=== PATIENT | male | born 2000 | race Two or more races ===

== ENCOUNTER 2022-10-28 09:34 | Emergency (ER) | payer OTHER ==
[~2022-10-28] VITALS: Ht 182.9 cm; Wt 86.2 kg
--- NOTE | 2022-10-28 10:04 | NUR ---
PAtient AOx4 able to express his concerns. Patient with no signs of distress, states he has left shoulder pain. Discussed plan of care with patient, pt verbalized agreement. Will continue to monitor and provide care.
[2022-10-28] MEDS ORDERED: PROPOFOL 20 ML IV ONE (10:26)
[2022-10-28] MEDS ORDERED: PROPOFOL 200 MG/20 ML VIAL IV ONE (10:30)
--- NOTE | 2022-10-28 10:33 | NUR ---
Discussed procedure plan with patient, verbalized agreement. He is faacetiming his mother and explaining procedure. Patient states he has gone through this multiple times and does not have any questions. Consent signed.
--- NOTE | 2022-10-28 10:35 | NUR ---
MD at bedside speaking with patient and discussing plan, patient agrees to move forward.
--- NOTE | 2022-10-28 10:48 | NUR ---
PAtient AOx4 able to express his concerns, states he feels alot better after procedure only a little droggy from medication. Will continue to monitor
--- NOTE | 2022-10-28 11:05 | NUR ---
Patient AOx4 able to express his concerns. On Face martine with mother talking about [employer] baseball game. Patient states he feels good and ready to go home. Answered patients questions and discussed discharge plan, patient states he has an orthopedic that he will see after discharge.
--- NOTE | 2022-10-28 11:46 | NUR ---
Discussed discharge plan with patient, provided imaging CD, all questions answered. Patient signed discharge form and agrees with discharge.
--- NOTE | 2022-10-28 11:55 | NUR ---
IV removed. Catheter intact and site benign. Pressure and 4x4 applied to site. No bleeding noted.
[2022-10-28 11:59] VITALS: BP 133/91
--- NOTE | 2022-10-28 11:59 | NUR ---
Patient discharged to home in stable condition. Written and verbal after care instructions given. Patient verbalizes understanding of instruction.
== END 2022-10-28 11:59 | disposition home or self-care (01) ==
LOC: ER 09:47
DX: S43.015A Anterior dislocation of left humerus, initial encounter (principal); F17.200 Nicotine dependence, unspecified, uncomplicated; Z60.2 Problems related to living alone; X58.XXXA Exposure to other specified factors, initial encounter; Y93.89 Activity, other specified; Y92.89 Other specified places as the place of occurrence of the external cause; Y99.8 Other external cause status
CPT/HCPCS: 99285; 23650; 99152; 73030 ×2; J2704; G0500